=== PATIENT | female | born 1960 | race Caucasian/White ===

== ENCOUNTER 2017-01-20 13:42 | Inpatient (IN) | payer BC ==
[~2017-01-20] VITALS: Ht 180.3 cm; Wt 82.4 kg
--- NOTE | 2017-01-20 13:54 | NUR ---
ALERT AND ORIENTED X4. ARRIVE TO ROOM VIA WHEELCHAIR. REPORTS SOB. COUGHING. PRODUCTIVE. SPUTUM THICK YELLOW REPORTED. DIRECT ADMIT FROM 'S OFFICE. SYMPTOMS WORSEN OVER LAST WEEKEND. PATIENT REPORTS UPDRAFT TREATMENT GIVEN AT OFFICE. REFUSE SCDs. AMBULATORY. BED LOCKED AND LOW. CALL LIGHT IN REACH. TWO SIDERAILS UP.
[2017-01-20] MEDS ORDERED: PROAIR HFA8.5 GM INH (13:59)
[2017-01-20] MEDS ORDERED: SINGULAIR10 MG PO (14:00)
[2017-01-20] MEDS ORDERED: CHERATUSSIN AC473 ML PO (14:02)
[2017-01-20] MEDS ORDERED: QVAR8.7 G1 INH (14:02)
[2017-01-20] MEDS ORDERED: VOLTAREN75 MG PO (14:03)
[2017-01-20 15:03] LABS: BASOPHILS 0.5 % (0-2); EOSINOPHILS 4.5 % (0-7); HEMATOCRIT 41.8 % (36.0-48.0); HEMOGLOBIN 14.4 g/dL (12-16); IMMATURE GRANULOCYTES 0.2 % (0-5); LYMPHOCYTES 17.4 % (15-50); MCH 35.9 pg (26.0-34.0); MCHC 34.4 g/dL (31.0-37.0); MCV 104.2 fL (80.0-100.0); MEAN PLATELET VOLUME 9.7 fL (7.4-10.4); MONOCYTES 9.3 % (2-11); NEUTROPHILS 68.1 % (40-80); PLATELET COUNT 321 10x3/uL (130-400); RBC 4.01 10x6/uL (4.00-5.40); RDW 12.2 % (11.5-14.5); WBC 10.7 10x3/uL (4.8-10.8)
--- NOTE | 2017-01-20 15:11 | NUR ---
20 GUAGE PIV INSERTED X1 STICK VIA R.FA. FLUSHED AND SL.
[2017-01-20 15:23] LABS: CALC OSMOLALITY 280 mosm/kg (275-300); CALCIUM 9.8 mg/dL (8.5-10.1); CARBON DIOXIDE 26.1 mmol/L (21.0-32.0); CHLORIDE - SERUM 103 mmol/L (98-107); CREATININE - SERUM 0.8 mg/dL (0.6-1.3); GLUCOSE 111 mg/dL (74-106); POTASSIUM - SERUM 4.1 mmol/L (3.5-5.1); SODIUM 141 mmol/L (136-145); UREA NITROGEN 11 mg/dL (7-18); eGFR NON AFRICAN AMERICAN 79 mL/min (90-120)
[2017-01-20 18:50] VITALS: BP 142/91; BMI 24.1
[2017-01-20 19:00] VITALS: BP 150/54
--- NOTE | 2017-01-20 19:50 | NUR ---
PT IN BED WITH HOB UP FOR COMFORT. WATCHING TV. VISITOR TO BEDSIDE. UP AD MOSES. REFUSES TO WEAR O2. RIGHT FA NS 2 100ML/HR. ELECTROLYTE PROTOCOL. ALERT & ORIENTED. BED IN LOWEST POSITION AND CALL LIGHT WITHIN REACH.
[2017-01-21 04:00] VITALS: BP 107/65
[2017-01-21 05:38] LABS: BASOPHILS 0 % (0-2); EOSINOPHILS 0 % (0-7); HEMATOCRIT 41.1 % (36.0-48.0); HEMOGLOBIN 14.2 g/dL (12-16); IMMATURE GRANULOCYTES 0.1 % (0-5); LYMPHOCYTES 6.6 % (15-50); MCH 35.6 pg (26.0-34.0); MCHC 34.5 g/dL (31.0-37.0); MEAN PLATELET VOLUME 9.9 fL (7.4-10.4); MONOCYTES 0.4 % (2-11); NEUTROPHILS 92.9 % (40-80); PLATELET COUNT 359 10x3/uL (130-400); RBC 3.99 10x6/uL (4.00-5.40); RDW 12.1 % (11.5-14.5); WBC 6.9 10x3/uL (4.8-10.8)
[2017-01-21 06:18] LABS: CALC OSMOLALITY 286 mosm/kg (275-300); CARBON DIOXIDE 21.8 mmol/L (21.0-32.0); CHLORIDE - SERUM 107 mmol/L (98-107); CREATININE - SERUM 0.8 mg/dL (0.6-1.3); MAGNESIUM - SERUM 1.8 mg/dL (1.8-2.4); PHOSPHOROUS 3.1 mg/dL (2.5-4.9); POTASSIUM - SERUM 3.7 mmol/L (3.5-5.1); SODIUM 142 mmol/L (136-145); UREA NITROGEN 11 mg/dL (7-18); eGFR NON AFRICAN AMERICAN 79 mL/min (90-120)
[2017-01-21 06:29] LABS: GLUCOSE 187 mg/dL (74-106)
--- NOTE | 2017-01-21 07:00 | NUR ---
RECEIVED REPORT. ASSUMED CARE OF PATIENT. RESTING WITH EYES CLOSED. RESP EVEN AND UNLABORED. EASILY AROUSED. CALL LIGHT WITHIN REACH. NO DISTRESS.
[2017-01-21 08:00] VITALS: BP 133/70
[2017-01-21 12:00] VITALS: BP 130/76
[2017-01-21 13:48] VITALS: Ht 180.3 cm; Wt 82.4 kg
[2017-01-21 16:00] VITALS: BP 131/72
--- NOTE | 2017-01-21 17:34 | NUR ---
MEDICATED FOR COUGH AT THIS TIME. NO DISTRESS.
--- NOTE | 2017-01-21 19:32 | NUR ---
REPORT GIVEN TO ONCOMING NURSE. NO DISTRESS.
--- NOTE | 2017-01-21 19:37 | NUR ---
PT RESTING IN BED. COUGH PRESENT. IV INFUSING NS @ 100 TO RIGHT FOREARM. PT DENIES ANY NEEDS. NO S/S OF DISTRESS. WILL CPOC
[2017-01-21 20:00] VITALS: BP 122/64
[2017-01-22] VITALS: BP 125/72
--- NOTE | 2017-01-22 00:20 | NUR ---
PT RESTING IN BED. BOYFRIEND AT BEDSIDE. PT DENIES ANY NEEDS. NO S/S OF DISTRESS. WILL CPOC
--- NOTE | 2017-01-22 03:56 | NUR ---
PT ASLEEP. RESPIRATIONS EVEN AND UNLABORED. NO S/S OF DISTRESS. WILL CPOC
[2017-01-22 05:55] LABS: BASOPHILS 0 % (0-2); EOSINOPHILS 0 % (0-7); HEMATOCRIT 39.7 % (36.0-48.0); HEMOGLOBIN 13.6 g/dL (12-16); IMMATURE GRANULOCYTES 0.3 % (0-5); LYMPHOCYTES 2.1 % (15-50); MCH 35.7 pg (26.0-34.0); MCHC 34.3 g/dL (31.0-37.0); MCV 104.2 fL (80.0-100.0); MEAN PLATELET VOLUME 10.2 fL (7.4-10.4); MONOCYTES 2.8 % (2-11); NEUTROPHILS 94.8 % (40-80); PLATELET COUNT 391 10x3/uL (130-400); RBC 3.81 10x6/uL (4.00-5.40); RDW 12.9 % (11.5-14.5)
[2017-01-22 06:01] LABS: CALC OSMOLALITY 290 mosm/kg (275-300); CALCIUM 8.8 mg/dL (8.5-10.1); CARBON DIOXIDE 22.9 mmol/L (21.0-32.0); CHLORIDE - SERUM 110 mmol/L (98-107); CREATININE - SERUM 0.8 mg/dL (0.6-1.3); GLUCOSE 171 mg/dL (74-106); POTASSIUM - SERUM 3.9 mmol/L (3.5-5.1); SODIUM 144 mmol/L (136-145); UREA NITROGEN 12 mg/dL (7-18); eGFR NON AFRICAN AMERICAN 79 mL/min (90-120)
[2017-01-22 06:18] LABS: WBC 19.4 10x3/uL (4.8-10.8)
[2017-01-22 08:00] VITALS: BP 125/70
[2017-01-22 09:17] LABS: IMMUNOGLOBULIN E 329 IU/mL (0-100)
--- NOTE | 2017-01-22 11:26 | NUR ---
0715- AM ROUNDING- RECEIVED REPORT FROM CHOPPED STRAND OPERATOR NURSE JOSETTE NO. PT IS CURRENTLY LAYING IN BED ON RIGHT SIDE WITH EYES CLOSED RESTING. ON ROOM AIR. NO MONITOR. IV SEEN TO RIGHT FOREARM WITH NS RUNNING AT 50CC. NO NEED AT THIS CURRENT TIME. WILL CONTINUE TO MONITOR AND CONTINUE WITH PLAN OF CARE.
[2017-01-22 12:00] VITALS: BP 112/65
[2017-01-22 16:00] VITALS: BP 124/69
--- NOTE | 2017-01-22 17:30 | NUR ---
PT IS CURRENTLY SITTING UP IN BED EATING DINNER. PT DENIES ANY NEED AT CURRENT TIME. CALL LIGHT IS IN REACH. WILL CONTINUE TO MONITOR.
[2017-01-22 20:00] VITALS: BP 97/55
[2017-01-23] VITALS: BP 102/60
[2017-01-23 04:00] VITALS: BP 111/65
[2017-01-23 04:57] LABS: BASOPHILS 0.1 % (0-2); EOSINOPHILS 0.1 % (0-7); HEMATOCRIT 38.4 % (36.0-48.0); IMMATURE GRANULOCYTES 0.3 % (0-5); LYMPHOCYTES 7.8 % (15-50); MCH 35.2 pg (26.0-34.0); MCHC 33.9 g/dL (31.0-37.0); MCV 104.1 fL (80.0-100.0); MEAN PLATELET VOLUME 9.9 fL (7.4-10.4); MONOCYTES 7.9 % (2-11); NEUTROPHILS 83.8 % (40-80); PLATELET COUNT 360 10x3/uL (130-400); RBC 3.69 10x6/uL (4.00-5.40); RDW 13.1 % (11.5-14.5); WBC 15.9 10x3/uL (4.8-10.8)
[2017-01-23 05:16] LABS: CALC OSMOLALITY 282 mosm/kg (275-300); CALCIUM 8.5 mg/dL (8.5-10.1); CARBON DIOXIDE 24.8 mmol/L (21.0-32.0); CHLORIDE - SERUM 108 mmol/L (98-107); CREATININE - SERUM 0.7 mg/dL (0.6-1.3); GLUCOSE 127 mg/dL (74-106); POTASSIUM - SERUM 3.6 mmol/L (3.5-5.1); SODIUM 141 mmol/L (136-145); UREA NITROGEN 12 mg/dL (7-18); eGFR NON AFRICAN AMERICAN > 90 mL/min (90-120)
--- NOTE | 2017-01-23 08:07 | NUR ---
AM ROUNDING- RECEIVED REPORT FROM [facility] NURSE BING. PT IS CURRENTLY LAYING IN BED ON RIGHT SIDE WITH EYES CLOSED RESTING. ON ROOM AIR. NO MONITOR. IV SEEN TO RIGHT FOREARM WITH NS RUNNING AT 50CC. NO NEED AT CURRENT TIME. WILL CONTINUE TO MONITOR AND CONTINUE WITH PLAN OF CARE.
[2017-01-23 09:31] VITALS: BP 117/54
--- NOTE | 2017-01-23 16:40 | NUR ---
Patient Name: RAYMOND DELEON Admission Status: Elective Accout number: [id number] Admission Date: 01-20-2017 : 1960 Admission Diagnosis:SHORTNESS OF BREATH Attending: JEANNE CLEMONS Current LOS: 3 Anticipated DC Date: 01-24-2017 Planned Disposition: Home Primary Insurance: [employer] OUT OF STATE Discharge Planning Comments: * Is the patient Alert and Oriented? Yes 0 * How many steps to enter\exit or inside your home? NONE 0 * PCP DR. NEWELL 0 * Pharmacy [facility] 0 * Preadmission Environment Home with Family 0 * ADLs Independent 0 * Equipment Nebulizer 0 * Other Equipment [facility]MENT [facility] 0 * List name and contact numbers for known caregivers / representatives who currently or will assist patient after discharge: ROCKY MACIEL, SISTER, 0 * Community resources currently utilized None 0 * Please name any agencies selected above. NONE 0 * Additional services required to return to the preadmission environment? No 0 * Can the patient safely return to the preadmission environment? Yes 0 * Has this patient been hospitalized within the prior 30 days at any hospital? No 0 CM MET WITH PT IN ROOM TO DISCUSS DISCHARGE PLANNING AND NEEDS. PT REPORTS LIVING AT HOME INDEPENDENTLY AND IS CAREGIVER FOR 13 YEAR OLD. PT HAS NEBULIZER FROM [employer]. PT HAS NO OUTSIDE SERVICES ASSISTING IN THE HOME. CM DISCUSSED AVAILABILITY OF HOME HEALTH, REHAB SERVICES AND MEDICAL EQUIPMENT. PT DENIES DISCHARGE NEEDS, REPORTS FAMILY WILL PICK HER UP FOR DISCHARGE HOME. Decommissioning Well Site Manager: Vamsi Moreno
--- NOTE | 2017-01-23 17:33 | NUR ---
PT IS CURRENTLY SITTING UP IN BED EATING DINNER. INFORMED PT THAT TVS ARE CURRENTLY NOT WORKING. GUEST ARE AT BEDSIDE. NO FURTHER NEED AT THIS TIME. WILL CONTINUE TO MONITOR.
--- NOTE | 2017-01-23 17:53 | NUR ---
DR. VALVERDE ON UNIT. DR. VALVERDE STATES PT WILL BE GOING FOR BRONCH TOMORROW AND WILL NEED TO BE CLEAR LIQUIDS ONLY UNTIL 0600 (01/23/17). WILL PUT NURSING MESSAGE IN AND INFORM PT.
--- NOTE | 2017-01-23 18:11 | NUR ---
INSTRUCTED TO JUST DRINK CLEAR LIQUIDS PER DR. VALVERDE AND NOTHING BY MOUTH AFTER 0600. PT AGREES.
[2017-01-23 20:00] VITALS: BP 98/63
--- NOTE | 2017-01-23 20:38 | NUR ---
PT LYING IN BED, AWAKE, ALERT, ORIENTED, STATES SHE HAS NOT FELT GOOD TODAY R/T INCREASED UNCONTROLLED COUGHING. PT STATES SHE HAS MINIMAL SPUTUM, BUT WHEN SHE DOES PRODUCE ANY, IT IS YELLOW. PT STATES HER BACK HURTS FROM COUGHING SO MUCH. PT DENIES ANY NEEDS AT THIS TIME. WILL CONTINUE TO MONITOR PT CLOSELY. BED LOW, CALL LIGHT IN REACH, SIDE RAILS X 2, HOB 30 DEGREES.
[2017-01-24] VITALS: BP 125/69
[2017-01-24 04:00] VITALS: BP 116/60
--- NOTE | 2017-01-24 05:18 | NUR ---
PT RESTING COMFORTABLY, EASILY ROUSABLE TO VERBAL STIMULI. PT DENIES ANY NEEDS AT THIS TIME. CONTINUE TO MONITOR CLOSELY. BED LOW, CALL LIGHT IN REACH, SIDE RAILS X 2, HOB 30 DEGREES.
[2017-01-24 05:30] LABS: BASOPHILS 0 % (0-2); EOSINOPHILS 0 % (0-7); HEMATOCRIT 39.9 % (36.0-48.0); HEMOGLOBIN 13.7 g/dL (12-16); IMMATURE GRANULOCYTES 0.2 % (0-5); MCH 35.6 pg (26.0-34.0); MCHC 34.3 g/dL (31.0-37.0); MCV 103.6 fL (80.0-100.0); MEAN PLATELET VOLUME 9.4 fL (7.4-10.4); MONOCYTES 5.3 % (2-11); NEUTROPHILS 87.5 % (40-80); PLATELET COUNT 362 10x3/uL (130-400); RBC 3.85 10x6/uL (4.00-5.40)
[2017-01-24 05:50] LABS: APTT 24.2 SECONDS (22.8-39.4); INR 0.91 (0.85-1.17); PROTIME 12.1 SECONDS (11.6-15.0)
[2017-01-24 05:51] LABS: CALC OSMOLALITY 281 mosm/kg (275-300); CALCIUM 8.8 mg/dL (8.5-10.1); CARBON DIOXIDE 27.1 mmol/L (21.0-32.0); CHLORIDE - SERUM 106 mmol/L (98-107); CREATININE - SERUM 0.7 mg/dL (0.6-1.3); GLUCOSE 128 mg/dL (74-106); SODIUM 141 mmol/L (136-145); UREA NITROGEN 9 mg/dL (7-18); eGFR NON AFRICAN AMERICAN > 90 mL/min (90-120)
--- NOTE | 2017-01-24 06:18 | NUR ---
CONSENTS SIGNED FOR BRONCHOSCOPY, BLOOD, AND ANESTHESIA, IN CHART. PT DENIES ANY NEEDS OR QUESTIONS, AND UNDERSTANDS THE NEED TO BE NPO FROM 0600 UNTIL AFTER HER PROCEDURE. CONTINUE TO MONITOR CLOSELY.
--- NOTE | 2017-01-24 08:11 | NUR ---
AM ROUNDS - PT IS IN BED AND AWAKE AT THIS TIME. IV TO RIGHT FA, NS AT 50CC/HR. BED AT LOWEST POSITION. SIDE RAILS UP X2. CALL WATSON IN USE/REACH. NO YELLOW BAND. PT IS NPO FOR A PROCEDURE TODAY. NO NEEDS AT THIS TIME. WILL CONTINUE TO MONITOR
[2017-01-24 09:17] VITALS: BP 125/71
[2017-01-24 12:01] VITALS: BP 166/75
[2017-01-24 12:16] LABS: FOLATE (FOLIC ACID) - SERUM 3.7 ng/mL (>3.0)
--- NOTE | 2017-01-24 12:38 | NUR ---
Nutrition Follow Up: Pt is eating 100% meal avg on a diabetic diet. Wt gain since admit noted. Labs reviewed. Meds noted including Solu Medrol. Noted pt is NPO for procedure. Rec continue diabetic diet when medically feasible. RD following.
--- NOTE | 2017-01-24 16:53 | NUR ---
PT RETURNED FROM GI LAB VIA BED. WILL CONTINUE TO [facility]
--- NOTE | 2017-01-24 18:40 | NUR ---
PT IN BED WITH NO NEEDS AT THIS TIME. WILL CONTINUE TO MONITOR
[2017-01-24 20:00] VITALS: BP 97/50
--- NOTE | 2017-01-24 23:30 | NUR ---
NURSE ROUNDS 20:00 - PT AWAKE, ALERT, ORIENTED, DENIES ANY NEEDS OR DIFFICULTY FROM BROCH EARLIER TODAY. PT STATES SHE IS FEELING MUCH BETTER, BREATHING BETTER. CONTINUE TO MONITOR CLOSELY, AT BEDSIDE AT THIS TIME. BED LOW, CALL LIGHT IN REACH, SIDE RAILS X 2, HOB 35 DEGREES.
--- NOTE | 2017-01-25 03:18 | NUR ---
PT RESTING COMFORTABLY, EASILY ROUSABLE TO VERBAL STIMULI, CONTINUE TO MONITOR CLOSELY. BED LOW, CALL LIGHT IN REACH, SIDE RAILS X 2, HOB 25-30 DEGREES.
[2017-01-25 04:00] VITALS: BP 121/68
--- NOTE | 2017-01-25 05:47 | NUR ---
PT AWAKE, ALERT, ORIENTED, COUGHING EXCESSIVELY, PRODUCTIVE. PT DENIES ANY NEEDS OTHER THAN PRN COUGH RX. CONTINUE TO MONITOR CLOSELY.
[2017-01-25 06:14] LABS: CALC OSMOLALITY 287 mosm/kg (275-300); CALCIUM 9.1 mg/dL (8.5-10.1); CARBON DIOXIDE 26.7 mmol/L (21.0-32.0); CHLORIDE - SERUM 108 mmol/L (98-107); CREATININE - SERUM 0.8 mg/dL (0.6-1.3); GLUCOSE 120 mg/dL (74-106); SODIUM 143 mmol/L (136-145); eGFR NON AFRICAN AMERICAN 79 mL/min (90-120)
[2017-01-25 06:17] LABS: UREA NITROGEN 18 mg/dL (7-18)
[2017-01-25 06:18] LABS: BASOPHILS 0 % (0-2); EOSINOPHILS 0 % (0-7); HEMATOCRIT 40.8 % (36.0-48.0); HEMOGLOBIN 14.2 g/dL (12-16); IMMATURE GRANULOCYTES 0.3 % (0-5); LYMPHOCYTES 10.1 % (15-50); MCH 36.1 pg (26.0-34.0); MCHC 34.8 g/dL (31.0-37.0); MCV 103.8 fL (80.0-100.0); MONOCYTES 6.9 % (2-11); NEUTROPHILS 82.7 % (40-80); PLATELET COUNT 367 10x3/uL (130-400); RBC 3.93 10x6/uL (4.00-5.40); RDW 12.6 % (11.5-14.5); WBC 11.4 10x3/uL (4.8-10.8)
--- NOTE | 2017-01-25 07:15 | NUR ---
RECEIVED REPORT. ASSUMED CARE OF PATIENT. PATIENT SITTING UP IN BED WITH EYES OPEN, RECEIVING NEBULIZER TREATMENT. CALL LIGHT WITHIN REACH. PATIENT DENIES NEEDS. STATES SHE FEELS GOOD, BUT NOT GOOD YESTERDAY AFTER HER BRONCH. WHEEZING NOTED. DENIES NEEDS AT THIS TIME. NO DISTRESS.
[2017-01-25 08:00] VITALS: BP 109/58
--- NOTE | 2017-01-25 11:25 | NUR ---
PATIENT WITH NON STOP HACKING COUGH. COUGH DROPS NOT EFFECTIVE AT THIS TIME. PHENERGAN WITH CODEINE COUGH SYRUP ADMINISTERED. NO DISTRESS. COUGH SYRUP IS HELPFUL.
[2017-01-25 12:00] VITALS: BP 140/79
--- NOTE | 2017-01-25 14:20 | NUR ---
PATIENT RETURNED TO ROOM AFTER AMBULATING [facility] WITH MALE FRIEND. NO DISTRESS. TOLERATING IV ABX AT THIS TIME.
[2017-01-25 16:42] VITALS: BP 124/75
--- NOTE | 2017-01-25 17:22 | NUR ---
RESTING IN BED, ATTENTION TOWARDS TELEVISION. RESP EVEN AND UNLABORED. NO DISTRESS. DENIES NEEDS AT THIS TIME.
[2017-01-25 19:00] VITALS: BP 128/74
--- NOTE | 2017-01-25 21:06 | NUR ---
PT AWAKE, ALERT, ORIENTED, DENIES ANY NEEDS. PT STATES HER SPUTUM IS MORE PRODUCTIVE, STILL COUGHING EXCESSIVELY, AND STATES SHE DOES GET WINDED WITH EXERTION. IV TO RIGHT FOREARM IS RED, SWOLLEN, AND WARM TO TOUCH, PAINFUL PER PT. IV HAS BEEN D/C WITH CATH TIP INTACT. WILL RESITE. CONTINUE TO MONITOR CLOSELY. BED LOW, CALL LIGHT IN REACH, SIDE RAILS X 2, HOB 35-40 DEGREES.
--- NOTE | 2017-01-25 22:38 | NUR ---
VAMP CUT OUT WORKER, NAKUL GORDON RN, NOTIFIED @ 2100 THAT I NEEDED PTS NEW RX FOR MUCINEX THAT WAS CHANGED BY DR. VALVERDE AFTER PHARMACY WAS GONE FOR THE DAY. WILL START NEXT DOSE.
[2017-01-26] VITALS: BP 124/71
[2017-01-26 04:00] VITALS: BP 112/52
[2017-01-26 05:21] LABS: BASOPHILS 0.1 % (0-2); EOSINOPHILS 1.9 % (0-7); HEMATOCRIT 39.6 % (36.0-48.0); HEMOGLOBIN 13.9 g/dL (12-16); IMMATURE GRANULOCYTES 0.5 % (0-5); LYMPHOCYTES 27.7 % (15-50); MCH 36.5 pg (26.0-34.0); MCHC 35.1 g/dL (31.0-37.0); MCV 103.9 fL (80.0-100.0); MEAN PLATELET VOLUME 9.5 fL (7.4-10.4); MONOCYTES 11.6 % (2-11); NEUTROPHILS 58.2 % (40-80); PLATELET COUNT 354 10x3/uL (130-400); RBC 3.81 10x6/uL (4.00-5.40); RDW 12.8 % (11.5-14.5); WBC 12.6 10x3/uL (4.8-10.8)
[2017-01-26 05:42] LABS: CALC OSMOLALITY 286 mosm/kg (275-300); CALCIUM 8.5 mg/dL (8.5-10.1); CARBON DIOXIDE 28.6 mmol/L (21.0-32.0); CHLORIDE - SERUM 107 mmol/L (98-107); CREATININE - SERUM 0.8 mg/dL (0.6-1.3); GLUCOSE 86 mg/dL (74-106); MAGNESIUM - SERUM 1.9 mg/dL (1.8-2.4); PHOSPHOROUS 4.4 mg/dL (2.5-4.9); POTASSIUM - SERUM 3.4 mmol/L (3.5-5.1); SODIUM 144 mmol/L (136-145); UREA NITROGEN 14 mg/dL (7-18); eGFR NON AFRICAN AMERICAN 79 mL/min (90-120)
--- NOTE | 2017-01-26 07:15 | NUR ---
RECEIVED REPORT. ASSUMED CARE OF PATIENT. PATIENT SITTING UP IN BED. COMPLETED BREATHING AT THIS TIME. RT AT BEDSIDE GETTING PATIENT POSITIONED FOR PERCUSSION. RESP EVEN AND UNLABORED. DRY HACKY COUGH NOTED. IV FLUIDS INFUSING ORDERED. NO DISTRESS. CALL LIGHT WITHIN REACH.
[2017-01-26 08:00] VITALS: BP 112/62
--- NOTE | 2017-01-26 08:43 | NUR ---
MEDICATED FOR CONTINUOUS COUGH AT THIS TIME. NO DISTRESS. COUGH DROPS REQUESTED FROM PHARMACY.
[2017-01-26 12:04] VITALS: BP 118/71
[2017-01-26 13:08] LABS: ACID FAST SMEAR Negative (()); AFB SPECIMEN PROCESSING Concentration (())
--- NOTE | 2017-01-26 14:25 | NUR ---
SITTING IN BED WITH NEBULIZER TX AT THIS TIME. NO DISTRESS. PATIENT IS BEING DISCHARGED TO HOME TODAY AFTER COMPLETING LEVAQUIN INFUSING AT THIS TIME.
[2017-01-26] MEDS ORDERED: PROVENTIL/2.5 MG/3 M INH (15:53)
[2017-01-26] MEDS ORDERED: QVAR8.7 G1 INH (16:04)
[2017-01-26] MEDS ORDERED: MUCINEX600 MG PO (16:05)
[2017-01-26] MEDS ORDERED: BENZONATATE200 MG PO (16:06)
[2017-01-26] MEDS ORDERED: PREDNISONE10 MG PO (16:06)
[2017-01-26] MEDS ORDERED: FLUTICASONE PRO16 GM NASAL (16:11)
--- NOTE | 2017-01-26 17:38 | NUR ---
1650 22 GAUGE IV REMOVED FROM RIGHT FOREARM. NO BLEEDING FROM SITE. 2X2 GAUZE APPLIED AND SECURED WITH TAPE. TOLERATED IV REMOVAL WELL. 1700 DISCHARGE INSTRUCTIONS PROVIDED TO PATIENT. PATIENT VERBALZIED ALL INSTRUCTIONS PROVIDED. QUESTIONS ANSWERED ABOUT PATIENTS MEDICATIONS. NO HARD SCRIPTS PROVIDED. 1715 PATIENT REFUSED WHEELCHAIR. PATIENT LEFT UNIT WITH HER , PATIENT LEFT WITH ALL PERSONAL BELONGINGS. PATIENT IN NO DISTRESS UPON LEAVING UNIT. PATIENT DISCHARGED TO HOME FOR SELF CARE.
== END 2017-01-26 17:15 | disposition home or self-care (01) | DRG 205 ==
LOC: D.M2 13:42
PROVIDERS: Family Medicine; Internal Medicine Pulmonary Disease; ADMIT Family Medicine
PROC: 0BB68ZX Excision of Right Lower Lobe Bronchus, Via Natural or Artificial Opening Endoscopic, Diagnostic (ICD-10-PCS; 2017-01-24)
PROC: 0BBB8ZX Excision of Left Lower Lobe Bronchus, Via Natural or Artificial Opening Endoscopic, Diagnostic (ICD-10-PCS; principal; 2017-01-24 11:00)
DX: T17.590A Other foreign object in bronchus causing asphyxiation, initial encounter (principal); J18.9 Pneumonia, unspecified organism; J45.901 Unspecified asthma with (acute) exacerbation; F17.203 Nicotine dependence unspecified, with withdrawal; J98.11 Atelectasis; J31.0 Chronic rhinitis; D53.1 Other megaloblastic anemias, not elsewhere classified